=== PATIENT | female | born 1970 | race Caucasian/White ===

== ENCOUNTER 2017-03-10 16:16 | Emergency (ER) | payer MEDICAID, OTHER ==
[~2017-03-10] VITALS: Ht 170.2 cm; Wt 59.1 kg
[2017-03-10] MEDS ORDERED: ONDANSETRON 2MG/ML, 2ML ONE (16:44)
[2017-03-10] MEDS ORDERED: LORazepam 2 MG/ML, 1ML ONE ×2 (16:45→17:34)
[2017-03-10] MEDS: LORazepam 2 MG/ML, 1ML IVPush PRN ×2 (16:47→17:52)
[2017-03-10] MEDS ORDERED: TRAZ100T15 PO (16:49)
[2017-03-10] MEDS ORDERED: ALPR-475 PO (16:50)
[2017-03-10 16:52] LABS: HEMOGLOBIN 15.4 g/dL (11.7-16.4)
[2017-03-10] MEDS ORDERED: CHLORDIAZEPOXIDE 25 MG CAPSULE PO PRN (17:00)
[2017-03-10] MEDS ORDERED: THIAMINE 100 MG in SODIUM CHLORIDE 0.9% 50 ML IVPB ONE (17:00)
[2017-03-10] MEDS ORDERED: ONDANSETRON 2MG/ML, 2ML IVPush ONE (17:00)
[2017-03-10] MEDS ORDERED: SODIUM CHLORIDE 0.9% 1,000ML IVBOLUS ONE (17:00)
[2017-03-10] MEDS ORDERED: SODIUM CHLORIDE FLUSH 10ML SYR IVF ONE (17:00)
[2017-03-10] MEDS ORDERED: FOLIC ACID 1 MG TABLET PO ONE (17:00)
[2017-03-10 17:05] LABS: ASPARTATE AMINO TRANSFERASE 149 U/L (15-37); BLOOD UREA NITROGEN 10 mg/dL (7-18)
[2017-03-10 19:24] VITALS: BP 119/88
== END 2017-03-10 19:26 | disposition home or self-care (01) ==
LOC: ED 17:10
DX: F10.239 Alcohol dependence with withdrawal, unspecified (principal); F41.9 Anxiety disorder, unspecified
CPT/HCPCS: 36415; 80053; 80307; 81003; 83690; 85025; 85610; 85730; 96361; 96365; 96375; 99284; J2060; J2405; J3411; J7030

== ENCOUNTER 2017-11-14 21:03 | Emergency (ER) | payer MEDICAID ==
[~2017-11-14] VITALS: Ht 167.6 cm; Wt 66.6 kg
[~2017-11-14 21:03] MED LIST: ALPR-475 PO; TRAZ100T15 PO
[2017-11-14 21:06] VITALS: BP 156/102
== END 2017-11-14 22:28 | disposition left against medical advice (07) ==
LOC: ED 22:22
DX: Z53.21 Procedure and treatment not carried out due to patient leaving prior to being seen by health care provider (principal)

== ENCOUNTER 2017-11-16 17:36 | Emergency (ER) | payer MEDICAID ==
[~2017-11-16] VITALS: Ht 172.7 cm; Wt 75.0 kg
[2017-11-16 17:49] VITALS: BP 133/89
[2017-11-16] MEDS ORDERED: SODIUM CHLORIDE 0.9% 1,000ML IVBOLUS ONE (18:00)
[2017-11-16] MEDS ORDERED: SODIUM CHLORIDE FLUSH 10ML SYR IVF ONE (18:00)
[2017-11-16] MEDS ORDERED: PLEASE ENTER HEIGHT AND WEIGHT MC SCH (18:00)
[2017-11-16] MEDS ORDERED: ONDANSETRON 2MG/ML, 2ML ONE (18:13)
[2017-11-16 18:19] LABS: BASOPHILS # (AUTO) 0.04 x10^3/uL (0-0.1); BASOPHILS % (AUTO) 1 % (0-1); EOSINOPHILS # (AUTO) 0.14 x10^3/uL (0-0.4); EOSINOPHILS % (AUTO) 2 % (1-7); LYMPHOCYTES # (AUTO) 2.25 x10^3/uL (1-3.4); LYMPHOCYTES % (AUTO) 40 % (22-44); MD NO; MEAN CORPUSCULAR HEMOGLOBIN 35.7 pg (27.0-34.8); MEAN CORPUSCULAR HGB CONC 34.8 g/dL (32.4-35.8); MEAN CORPUSCULAR VOLUME 102.5 fL (80-100); MEAN PLATELET VOLUME 6.6 fL (7.4-10.4); MONOCYTES % (AUTO) 5 % (2-9); NEUTROPHILS # (AUTO) 2.95 x10^3/uL (1.8-6.8); NEUTROPHILS % (AUTO) 52 % (42-75); PLATELET COUNT 450 x10^3/uL (130-400); RED BLOOD COUNT 4.39 x10^6/uL (3.82-5.3)
[2017-11-16 18:26] LABS: INTERNATIONAL NORMALIZED RATIO 0.89 (0.93-1.1); PROTHROMBIN TIME 9.2 Seconds (9.6-11.5)
[2017-11-16] MEDS ORDERED: ONDANSETRON 2MG/ML, 2ML IVPush ONE (18:30)
[2017-11-16 18:31] LABS: ALANINE AMINOTRANSFERASE 36 U/L (12-78); ALBUMIN 3.3 g/dL (3.4-5.0); ANION GAP 11 mmol/L (5-15); CALCIUM 8.5 mg/dL (8.5-10.1); CHLORIDE 103 mmol/L (98-107); CREATININE 0.67 mg/dL (0.55-1.02)
[2017-11-16 18:41] LABS: ALKALINE PHOSPHATASE 61 U/L (45-117); BILIRUBIN,TOTAL 0.2 mg/dL (0.2-1.0); TOTAL PROTEIN 7.5 g/dL (6.4-8.2)
== END 2017-11-16 19:39 | disposition home or self-care (01) ==
LOC: ED 17:41
DX: F10.220 Alcohol dependence with intoxication, uncomplicated (principal); K62.5 Hemorrhage of anus and rectum
CPT/HCPCS: 36415; 80053; 80307; 83690; 83735; 85025; 85610; 85730; 96361; 96374; 99284; J2405; J7030; G0479

== ENCOUNTER 2019-02-03 00:34 | Emergency (ER) | payer MEDICAID ==
[~2019-02-03] VITALS: Ht 170.2 cm; Wt 64.0 kg
[~2019-02-03 00:34] MED LIST changes: +TRAZ-137 PO; -TRAZ100T15 PO
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
--- NOTE | 2019-02-03 01:35 | NUR ---
pt provided warm blanckets. pt requesting pain med. pa notified.
[2019-02-03] MEDS ORDERED: IBUPROFEN 600 MG TABLET ONE (01:55)
--- NOTE | 2019-02-03 01:58 | NUR ---
pt medicated per emar. pt tolerated well.
[2019-02-03] MEDS ORDERED: IBUPROFEN 600 MG TABLET PO ONE (02:00)
--- NOTE | 2019-02-03 02:50 | NUR ---
pt sleeping in gurney. resps even and unlabored.
--- NOTE | 2019-02-03 03:55 | NUR ---
PT SLEEPING IN GURNEY. RESPS EVEN AND UNLABORED.
[2019-02-03 04:50] VITALS: BP 113/70
[2019-02-03] MEDS ORDERED: LORazepam 1MG TABLET ONE (04:52)
[2019-02-03] MEDS ORDERED: LORazepam 1MG TABLET PO ONE (05:00)
--- NOTE | 2019-02-03 05:57 | NUR ---
Patient/Caregiver given discharge instructions and they have confirmed that they understand the instructions. Patient ambulatory with steady gait.
== END 2019-02-03 05:59 | disposition home or self-care (01) ==
LOC: ED 01:45
DX: F10.120 Alcohol abuse with intoxication, uncomplicated (principal); T74.21XA Adult sexual abuse, confirmed, initial encounter; F41.9 Anxiety disorder, unspecified
CPT/HCPCS: 99283

== ENCOUNTER 2019-03-11 17:17 | Emergency (ER) | payer MEDICAID ==
[~2019-03-11] VITALS: Ht 170.2 cm; Wt 68.0 kg
[2019-03-11] MEDS ORDERED: SODIUM CHLORIDE 0.9% 1,000ML IVBOLUS ONE (17:30)
[2019-03-11 18:15] LABS: BASOPHILS # (AUTO) 0.03 x10^3/uL (0-0.1); BASOPHILS % (AUTO) 1 % (0-1); EOSINOPHILS # (AUTO) 0.23 x10^3/uL (0-0.4); EOSINOPHILS % (AUTO) 6 % (1-7); LYMPHOCYTES # (AUTO) 1.57 x10^3/uL (1-3.4); LYMPHOCYTES % (AUTO) 37 % (22-44); MD NO; MEAN CORPUSCULAR HEMOGLOBIN 33.8 pg (27.0-34.8); MEAN CORPUSCULAR HGB CONC 34.2 g/dL (32.4-35.8); MEAN CORPUSCULAR VOLUME 98.8 fL (80-100); MEAN PLATELET VOLUME 6.9 fL (7.4-10.4); MONOCYTES # (AUTO) 0.37 x10^3/uL (0.2-0.8); MONOCYTES % (AUTO) 9 % (2-9); NEUTROPHILS # (AUTO) 2.04 x10^3/uL (1.8-6.8); NEUTROPHILS % (AUTO) 48 % (42-75); PLATELET COUNT 310 x10^3/uL (130-400); RED BLOOD COUNT 3.85 x10^6/uL (3.82-5.3); RED CELL DISTRIBUTION WIDTH 13.4 % (9.6-15.2)
[2019-03-11 18:28] LABS: ALBUMIN 3.6 g/dL (3.4-5.0); ANION GAP 8 mmol/L (5-15); CALCIUM 8.2 mg/dL (8.5-10.1); CHLORIDE 109 mmol/L (98-107)
[2019-03-11 18:31] LABS: ALANINE AMINOTRANSFERASE 23 U/L (12-78); ALKALINE PHOSPHATASE 47 U/L (45-117); BILIRUBIN,TOTAL 0.3 mg/dL (0.2-1.0); CREATININE 0.69 mg/dL (0.55-1.02); TOTAL PROTEIN 7.1 g/dL (6.4-8.2)
[2019-03-11 18:36] LABS: SALICYLATE LEVEL < 1.7 mg/dL (2.8-20.0)
[2019-03-11 18:37] LABS: ACETAMINOPHEN < 2 mcg/mL (10-30)
[2019-03-11 18:49] VITALS: BP 127/72
--- NOTE | 2019-03-11 19:49 | NUR ---
SPOKE WITH GABE THE PTS FRIEND. GABE STATES THIS WAS NOT A SUICIDAL ATTEMPT. HE STATED SHE HAS HX OF 30 YEARS DRINKING AND DOES THIS OCCASIONALLY TRYING TO GET CLEAN AGAIN. PT DENIES SI/SA AT THIS TIME. PT WAS ON CONT O2, BP, AND CARDIAC MONITORING. PT RESTED FOR A BREIF PERIOD OF TIME AND WOKE UP REQUESTING FOOD. MEAL WAS CONSUMED. AT THIS POINT IN TIME PT WOULD LIKE TO SPEAK TO MD AND WANTS TO GO HOME. MD MADE AWARE OF THIS SITUATION.
== END 2019-03-11 20:56 | disposition home or self-care (01) ==
LOC: ED 20:02
DX: T42.4X1A Poisoning by benzodiazepines, accidental (unintentional), initial encounter (principal); Y92.89 Other specified places as the place of occurrence of the external cause; F19.129 Other psychoactive substance abuse with intoxication, unspecified; F10.220 Alcohol dependence with intoxication, uncomplicated; Z72.9 Problem related to lifestyle, unspecified
CPT/HCPCS: 36415; 80053; 80307; 80329; 85025; 93005; 99284; J7030; G0480